=== PATIENT | male | born 1950 | race African-American/Black ===

== ENCOUNTER 2020-03-17 15:42 | Inpatient (IN) | payer MEDICARE ==
[~2020-03-17] VITALS: Ht 172.7 cm; Wt 83.5 kg
[2020-03-17] MEDS ORDERED: TAMS-11 PO (15:48)
[2020-03-17] MEDS ORDERED: MAGNESIUM/ALUMINUM HYDROXIDE/SIMETHICONE 30ML UDC PO STA (16:11)
[2020-03-17 16:36] LABS: BASOPHILS % 0.5 % (0.0-2.0); EOSINOPHILS % 0.1 % (0.0-5.0); HEMATOCRIT. 41.4 % (42.0-52.0); HEMOGLOBIN. 13.9 g/dL (14.0-18.0); LYMPHOCYTES % 17.4 % (20.0-50.0); MEAN CORPUSCULAR HEMOGLOBIN 30.5 pg (28.0-32.0); MEAN CORPUSCULAR VOLUME 90.7 fL (80.0-94.0); MEAN PLATELET VOLUME 7.6 fl (7.4-10.4); MONOCYTES % 8.9 % (2.0-8.0); NEUTROPHILS % 73.1 % (40.0-76.0); PLATELET 353 x1000/uL (130-400); RED BLOOD CELL COUNT 4.57 mill/uL (4.7-6.1); RED CELL DISTRIBUTION WIDTH 13.2 % (11.6-14.6)
[2020-03-17 16:45] LABS: CHLORIDE 99 mEq/L (98-107)
[2020-03-17 16:47] LABS: PROTHROMBIN TIME 10.5 sec (9.6-11.0)
[2020-03-17] MEDS ORDERED: AMLODIPINE 10MG TABLET PO ONE (17:45)
[2020-03-17] MEDS ORDERED: SODIUM CHLORIDE 0.9% 1,000 ML IV ONE (17:45)
[2020-03-17 18:27] LABS: CLARITY URINE CLEAR (CLEAR); COLOR URINE YELLOW (YELLOW); KETONES URINE NEGATIVE (NEGATIVE); LEUKOCYTE ESTERASE URINE NEGATIVE (NEGATIVE); NITRITE URINE NEGATIVE (NEGATIVE); OCCULT BLOOD URINE NEGATIVE (NEGATIVE); PROTEIN URINE NEGATIVE (NEGATIVE); SPECIFIC GRAVITY URINE 1.009 (1.005-1.030); UROBILINOGEN URINE 0.2 E.U./dL (0.2-1.0)
[2020-03-17] MEDS ORDERED: TAMSULOSIN HCL 0.4MG SR CAPSULE PO SCH (19:00)
[2020-03-17] MEDS ORDERED: DOCUSATE SODIUM 100MG CAPSULE PO PRN (22:15)
[2020-03-17] MEDS ORDERED: CLONIDINE 0.1MG TABLET PO PRN (22:15)
[2020-03-17] MEDS ORDERED: ONDANSETRON HCL 4MG/2ML INJ IV PRN (22:15)
[2020-03-17] MEDS ORDERED: ACETAMINOPHEN 325MG TABLET PO PRN (22:15)
[2020-03-17] MEDS ORDERED: MAGNESIUM/ALUMINUM HYDROXIDE/SIMETHICONE 30ML UDC PO PRN (22:15)
[2020-03-17] MEDS ORDERED: IPRATROPIUM/ALBUTEROL 0.5-3(2.5)MG/3ML NEB NEB PRN (22:15)
[2020-03-18] VITALS (7 sets, daily range): BP systolic 116–158; BP diastolic 71–99
[2020-03-18] MEDS: HYDROCODONE/ACETAMINOPHEN 5/325MG TABLET PO PRN ×2 (04:40→16:13)
[2020-03-18 06:33] LABS: BASOPHILS % 0.4 % (0.0-2.0); EOSINOPHILS % 0.1 % (0.0-5.0); HEMATOCRIT. 40.1 % (42.0-52.0); HEMOGLOBIN. 13.5 g/dL (14.0-18.0); LYMPHOCYTES % 11.4 % (20.0-50.0); MEAN CORPUSCULAR VOLUME 91.9 fL (80.0-94.0); MEAN PLATELET VOLUME 7.9 fl (7.4-10.4); MONOCYTES % 6.9 % (2.0-8.0); NEUTROPHILS % 81.2 % (40.0-76.0); PLATELET 348 x1000/uL (130-400); RED BLOOD CELL COUNT 4.37 mill/uL (4.7-6.1); RED CELL DISTRIBUTION WIDTH 13.6 % (11.6-14.6)
[2020-03-18 06:50] LABS: HDL CHOLESTEROL 48 mg/dL (40-59)
[2020-03-18 06:53] LABS: CREATINE KINASE 136 IU/L (39-308); CREATINE KINASE MB FRACTION 1.2 ng/mL (0.5-3.6); LDL CHOLESTEROL 101 mg/dL (5-100)
[2020-03-18] MEDS: SODIUM CHLORIDE 0.9% 1,000 ML IV SCH ×2 (06:56→10:44)
[2020-03-18 07:32] LABS: *BARBITURATES SCREEN URINE NEGATIVE (NEGATIVE); CANNABINOID URINE SCREEN NEGATIVE (NEGATIVE); METHADONE URINE SCREEN NEGATIVE (NEGATIVE); OPIATES URINE SCREEN NEGATIVE (NEGATIVE); PHENCYCLIDINE URINE SCREEN NEGATIVE (NEGATIVE)
[2020-03-18 07:33] LABS: *AMPHETAMINES SCREEN URINE NEGATIVE (NEGATIVE); *BENZODIAZEPINES SCREEN URINE NEGATIVE (NEGATIVE); *COCAINE SCREEN URINE NEGATIVE (NEGATIVE)
[2020-03-18] MEDS ORDERED: PNEUMOCOCCAL 23-VAL P-SAC VAC 0.5 ML IM ONE (08:00)
[2020-03-18] MEDS: TAMSULOSIN HCL 0.4MG SR CAPSULE PO SCH (08:17)
[2020-03-18] MEDS: NIFEDIPINE XL 60MG TAB PO SCH (10:27)
[2020-03-18] MEDS: FINASTERIDE 5MG TABLET PO SCH (16:08)
[2020-03-18] MEDS: CARVEDILOL 6.25 MG TABLET PO SCH ×2 (16:09→21:31)
[2020-03-18] MEDS: ASPIRIN 81MG TABLET PO SCH (16:09)
[2020-03-18] MEDS: CLOPIDOGREL 75MG TABLET PO SCH (16:09)
[2020-03-18 17:46] LABS: CREATINE KINASE 106 IU/L (39-308)
[2020-03-19] VITALS: BP 121/83
[2020-03-19] MEDS: SODIUM CHLORIDE 0.9% 1,000 ML IV SCH ×2 (00:08→11:59)
[2020-03-19 04:07] VITALS: BP 133/89
[2020-03-19 07:24] LABS: BASOPHILS % 0.5 % (0.0-2.0); HEMATOCRIT. 37.1 % (42.0-52.0); HEMOGLOBIN. 12.6 g/dL (14.0-18.0); LYMPHOCYTES % 24.2 % (20.0-50.0); MEAN CORPUSCULAR HEMOGLOBIN 30.8 pg (28.0-32.0); MEAN CORPUSCULAR VOLUME 90.7 fL (80.0-94.0); MEAN PLATELET VOLUME 7.4 fl (7.4-10.4); MONOCYTES % 9.8 % (2.0-8.0); NEUTROPHILS % 63.5 % (40.0-76.0); PLATELET 341 x1000/uL (130-400); RED BLOOD CELL COUNT 4.09 mill/uL (4.7-6.1); RED CELL DISTRIBUTION WIDTH 13.2 % (11.6-14.6)
[2020-03-19 07:37] LABS: CHLORIDE 107 mEq/L (98-107)
[2020-03-19 07:49] LABS: PHOSPHORUS 3.4 mg/dL (2.5-4.9)
[2020-03-19 08:00] VITALS: BP 132/84
[2020-03-19] MEDS: FINASTERIDE 5MG TABLET PO SCH (10:04)
[2020-03-19] MEDS: NIFEDIPINE XL 60MG TAB PO SCH (10:04)
[2020-03-19] MEDS: ASPIRIN 81MG TABLET PO SCH (10:05)
[2020-03-19] MEDS: TAMSULOSIN HCL 0.4MG SR CAPSULE PO SCH (10:05)
[2020-03-19] MEDS: CARVEDILOL 6.25 MG TABLET PO SCH ×2 (10:05→20:50)
[2020-03-19] MEDS: CLOPIDOGREL 75MG TABLET PO SCH (10:05)
[2020-03-19 12:00] VITALS: BP 134/86
[2020-03-19] MEDS: HYDROCODONE/ACETAMINOPHEN 5/325MG TABLET PO PRN (12:01)
[2020-03-19 16:00] VITALS: BP 109/74
[2020-03-19 20:10] VITALS: BP 130/75
[2020-03-19] MEDS: ATORVASTATIN CALCIUM 20MG TABLET PO SCH (20:50)
[2020-03-20 00:04] VITALS: BP 114/76
[2020-03-20] MEDS: SODIUM CHLORIDE 0.9% 1,000 ML IV SCH (00:05)
[2020-03-20 04:00] VITALS: BP 122/79
[2020-03-20 06:25] LABS: BASOPHILS % 0.5 % (0.0-2.0); EOSINOPHILS % 4.2 % (0.0-5.0); HEMATOCRIT. 37.9 % (42.0-52.0); HEMOGLOBIN. 12.7 g/dL (14.0-18.0); LYMPHOCYTES % 22.2 % (20.0-50.0); MEAN CORPUSCULAR VOLUME 92.2 fL (80.0-94.0); MEAN PLATELET VOLUME 7.4 fl (7.4-10.4); NEUTROPHILS % 65.1 % (40.0-76.0); PLATELET 346 x1000/uL (130-400); RED BLOOD CELL COUNT 4.11 mill/uL (4.7-6.1); RED CELL DISTRIBUTION WIDTH 13.2 % (11.6-14.6)
[2020-03-20 08:00] VITALS: BP 146/84
[2020-03-20] MEDS: ASPIRIN 81MG TABLET PO SCH (10:42)
[2020-03-20] MEDS: TAMSULOSIN HCL 0.4MG SR CAPSULE PO SCH (10:45)
[2020-03-20] MEDS: NIFEDIPINE XL 60MG TAB PO SCH (10:45)
[2020-03-20] MEDS: FINASTERIDE 5MG TABLET PO SCH (10:45)
[2020-03-20] MEDS ORDERED: MAGNESIUM HYDROXIDE 400MG/5ML 30ML UDC PO NR (10:45)
[2020-03-20] MEDS: CARVEDILOL 6.25 MG TABLET PO SCH ×2 (10:46→20:40)
[2020-03-20] MEDS: CLOPIDOGREL 75MG TABLET PO SCH (10:46)
[2020-03-20 12:00] VITALS: BP 144/87
[2020-03-20] MEDS: HYDROCODONE/ACETAMINOPHEN 5/325MG TABLET PO PRN (12:54)
[2020-03-20] MEDS ORDERED: REGADENOSON 0.4 MG/5 ML IV NR (14:15)
[2020-03-20 16:00] VITALS: BP 119/73
[2020-03-20] MEDS: DOCUSATE SODIUM 100MG CAPSULE PO SCH (17:00)
[2020-03-20 20:00] VITALS: BP 126/81
[2020-03-20] MEDS: ATORVASTATIN CALCIUM 20MG TABLET PO SCH (20:40)
[2020-03-21] VITALS: BP 120/79
[2020-03-21 04:00] VITALS: BP 137/92
[2020-03-21 07:12] LABS: BASOPHILS % 0.2 % (0.0-2.0); EOSINOPHILS % 4.3 % (0.0-5.0); HEMATOCRIT. 38.9 % (42.0-52.0); HEMOGLOBIN. 13.2 g/dL (14.0-18.0); LYMPHOCYTES % 21.6 % (20.0-50.0); MEAN CORPUSCULAR VOLUME 91.5 fL (80.0-94.0); MEAN PLATELET VOLUME 7.3 fl (7.4-10.4); MONOCYTES % 8.2 % (2.0-8.0); NEUTROPHILS % 65.7 % (40.0-76.0); PLATELET 346 x1000/uL (130-400); RED BLOOD CELL COUNT 4.25 mill/uL (4.7-6.1); RED CELL DISTRIBUTION WIDTH 13.3 % (11.6-14.6)
[2020-03-21 08:00] VITALS: BP 132/86
[2020-03-21 08:04] LABS: PHOSPHORUS 3.1 mg/dL (2.5-4.9)
[2020-03-21] MEDS ORDERED: REGADENOSON 0.4 MG/5 ML IV ONE (09:24)
[2020-03-21] MEDS: MAGNESIUM CITRATE 300ML SOLUTION PO SCH ×2 (10:50→17:56)
[2020-03-21] MEDS: ASPIRIN 81MG TABLET PO SCH (10:50)
[2020-03-21] MEDS: DOCUSATE SODIUM 100MG CAPSULE PO SCH ×2 (10:51→18:13)
[2020-03-21] MEDS: CLOPIDOGREL 75MG TABLET PO SCH (10:51)
[2020-03-21] MEDS: CARVEDILOL 6.25 MG TABLET PO SCH ×2 (10:52→20:13)
[2020-03-21] MEDS: NIFEDIPINE XL 60MG TAB PO SCH (10:52)
[2020-03-21] MEDS: FINASTERIDE 5MG TABLET PO SCH (10:52)
[2020-03-21] MEDS: HYDROCODONE/ACETAMINOPHEN 5/325MG TABLET PO PRN (10:52)
[2020-03-21] MEDS: TAMSULOSIN HCL 0.4MG SR CAPSULE PO SCH (10:54)
[2020-03-21 12:11] VITALS: BP 126/88
[2020-03-21 16:00] VITALS: BP 106/76
[2020-03-21 20:00] VITALS: BP 111/70
[2020-03-21] MEDS: ATORVASTATIN CALCIUM 20MG TABLET PO SCH (20:13)
[2020-03-22] VITALS: BP 126/85
[2020-03-22 04:00] VITALS: BP 116/78
[2020-03-22 07:09] LABS: PHOSPHORUS 3.2 mg/dL (2.5-4.9)
[2020-03-22 07:16] LABS: BASOPHILS % 0.3 % (0.0-2.0); EOSINOPHILS % 4.4 % (0.0-5.0); HEMATOCRIT. 37.5 % (42.0-52.0); HEMOGLOBIN. 12.9 g/dL (14.0-18.0); MEAN CORPUSCULAR HEMOGLOBIN 31.1 pg (28.0-32.0); MEAN CORPUSCULAR VOLUME 90.7 fL (80.0-94.0); MEAN PLATELET VOLUME 7.1 fl (7.4-10.4); MONOCYTES % 9.9 % (2.0-8.0); NEUTROPHILS % 63.4 % (40.0-76.0); PLATELET 361 x1000/uL (130-400); RED BLOOD CELL COUNT 4.14 mill/uL (4.7-6.1)
[2020-03-22 08:00] VITALS: BP 121/79
[2020-03-22] MEDS: DOCUSATE SODIUM 100MG CAPSULE PO SCH (09:08)
[2020-03-22] MEDS: TAMSULOSIN HCL 0.4MG SR CAPSULE PO SCH (09:08)
[2020-03-22] MEDS: ASPIRIN 81MG TABLET PO SCH (09:08)
[2020-03-22] MEDS: CARVEDILOL 6.25 MG TABLET PO SCH (09:09)
[2020-03-22] MEDS: FINASTERIDE 5MG TABLET PO SCH (09:09)
[2020-03-22] MEDS: NIFEDIPINE XL 60MG TAB PO SCH (09:09)
[2020-03-22 11:46] VITALS: BP 118/83
[2020-03-22] MEDS ORDERED: NIFE-32 PO (12:43)
[2020-03-22] MEDS ORDERED: ASPI-1160 PO (12:43)
[2020-03-22] MEDS ORDERED: FINA5TAB11 PO (12:43)
[2020-03-22] MEDS ORDERED: ATOR20TA PO (12:43)
[2020-03-22] MEDS ORDERED: TAMS-11 PO (12:43)
[2020-03-22] MEDS ORDERED: MAGNESIUM CITRATE 300ML SOLUTION PO NR (13:00)
== END 2020-03-22 15:44 | disposition home or self-care (01) | DRG 205 ==
LOC: ER 15:42 → 8WST 18:43 → EDBEDREQ 18:45 → ENRESERV 21:57
PROVIDERS: ADMIT Internal Medicine; ATTEND Internal Medicine
DX: M94.0 Chondrocostal junction syndrome [Tietze] (principal); N17.0 Acute kidney failure with tubular necrosis; I12.0 Hypertensive chronic kidney disease with stage 5 chronic kidney disease or end stage renal disease; E87.1 Hypo-osmolality and hyponatremia; N13.30 Unspecified hydronephrosis; J90 Pleural effusion, not elsewhere classified; N18.5 Chronic kidney disease, stage 5; N40.1 Benign prostatic hyperplasia with lower urinary tract symptoms; R31.0 Gross hematuria; I25.10 Atherosclerotic heart disease of native coronary artery without angina pectoris; N32.89 Other specified disorders of bladder; K80.20 Calculus of gallbladder without cholecystitis without obstruction; E78.00 Pure hypercholesterolemia, unspecified; E78.5 Hyperlipidemia, unspecified; R00.0 Tachycardia, unspecified; R35.0 Frequency of micturition; Z20.828 Contact with and (suspected) exposure to other viral communicable diseases; Z80.42 Family history of malignant neoplasm of prostate; Z83.3 Family history of diabetes mellitus; Z91.19 Patient's noncompliance with other medical treatment and regimen; Z95.5 Presence of coronary angioplasty implant and graft
CPT/HCPCS: 36415; 71045; 74176; 78452; 80048; 80053; 80061; 80305; 81003; 82040; 82550; 82553; 83735; 84100; 84443; 84484; 85025; 87426; 90732; 93005; 93017; 93306; 93970; 99291; A9500; J2785; J7030